=== PATIENT | male | born 1935 | race Caucasian/White ===

== ENCOUNTER 2016-12-18 10:36 | Inpatient (IN) | payer OTHER ==
[~2016-12-18] VITALS: Ht 182.8 cm; Wt 77.1 kg
--- NOTE | ~2016-12-18 | DS ---
[place], [place] DISCHARGE SUMMARY [id number] UN[facility] #: [id number] ROOM: 311 DOCTOR: Patric KIMBLE,KAREN BIRTHDATE: [birth year] DOS: 12/21/2016 ADDENDUM Please refer to the history of present illness, past psychiatric history, past medical history, social history, substance abuse history, admission mental status examination and admission diagnosis from the psychiatric H and P. HOSPITAL COURSE: The patient got admitted for stabilization. We continued his medication. He was pleasant and cooperative during his stay. He was seen by the treatment team regularly. He was also seen by the medical team during his stay. The patient was not a threat to himself or anyone else. The treatment team felt that the patient got maximum benefit out of this acute hospitalization and can be discharged to home on 12/21/2016. Prior to the discharge, the treatment team communicated with the patient's family. They agreed with the discharge plan and did not express any safety concern for the patient or anyone else. MENTAL STATUS EXAMINATION: The patient was pleasant, cooperative, described his mood as "okay." Affect, mood congruent. Thought process goal directed. No flight of ideas or loosening of association. He denied auditory or visual hallucination. No delusion or paranoia noted. He denied suicidal ideation, intent or plan. He also denied homicidal ideation, intent or plan. ASSESSMENT: Mood disorder, not otherwise specified. PLAN: 1. Continue current medication. 2. The patient was advised to go for followup appointment. KAREN KIMBLE MD CM:KUNAL [id number] Patric KIMBLE 12/22/16 0610 interface
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
--- NOTE | ~2016-12-18 | PR ---
[place], [place] PROGRESS NOTE NAME: BAYRON SIERRA UNIT #: [id number] ROOM: 311 DOCTOR: Patric KIMBLE MAHBOOB BIRTHDATE: [birth year] DOS: 12/20/2016 PSYCHIATRIC PROGRESS NOTE SUBJECTIVE: The patient seen and spoke with the staff. Per staff, the patient is doing well. No behavior problems or issues. Medication compliant. No agitated or threatening behavior. As per the clinical social work aide, she spoke with the family. Family feels that the patient is doing well and wanted to take him back home. Reportedly, they did not express any safety concern for the patient including his . They denied having any gun at home also. The patient was pleasant, cooperative, using a wheelchair. He reports doing well. He denied depressed mood or hopelessness. Denied any other neurovegetative signs and symptoms of depression. He denied any symptoms of psychosis, katey or hypomania. He is compliant with his medication. Denied any side effect. He vehemently denied any thoughts of harming his and he said that he is not sure why he acted the way he acted. MENTAL STATUS EXAMINATION: Pleasant, cooperative, describes his mood as "good." Affect, mood congruent. Thought process, he is with some confabulation. Denied auditory or visual hallucination. No delusion or paranoia noted. Denied suicidal ideation, intent or plan. Vehemently denied homicidal ideation, intent or plan. ASSESSMENT: 1. Mood disorder, not otherwise specified, 2. Cognitive disorder, not otherwise specified. PLAN: 1. Continue current medication. 2. Continue redirection. 3. Biggs milieu. 4. Possible discharge to home tomorrow. [place], [place] PROGRESS NOTE NAME: BAYRON SIERRA [facility] UNIT #: [id number] ROOM: 311 DOCTOR: Patric KIMBLE MAHBOOB BIRTHDATE: [birth year] KAREN KIMBLE MD CM:ROE [phone] Patric KIMBLE 12/20/163 interface
--- NOTE | ~2016-12-18 | PR ---
[place], [place] PROGRESS NOTE [id number] UN[facility] #: [id number] ROOM: 311 DOCTOR: Patric KIMBLE,KAREN BIRTHDATE: [birth year] DOS: 12/19/2016 SUBJECTIVE: Patient seen and spoke with the staff. Per staff, patient slept well, took his medication. No behavioral problems or issues. No agitative or threatening behavior. Patient was pleasant, cooperative. He was in the day area. He reports doing well, denied any side effect from the medication. He did not express any problems or concerns. MENTAL STATUS EXAMINATION: Patient was pleasant and cooperative. Described his mood as "okay." Affect, mood congruent. Thought processes with some confabulation. He denied auditory or visual hallucination. No delusion or paranoia noted. He denied suicidal ideation, intent or plan. He also denied homicidal ideation, intent or plan. PLAN: 1. Continue current medications and care. 2. Continue redirection. 3. Biggs milieu and supportive care. KAREN KIMBLE MD CM:ROE [phone] Patric KIMBLE 12/19/16 4739 interface
[2016-12-18] MEDS ORDERED: METOPROLOL TART50 M1 PO (10:56)
[2016-12-18] MEDS ORDERED: SEROQUEL50 MG PO (10:59)
[2016-12-18] MEDS ORDERED: CARAFATE1 G1 PO (11:01)
[2016-12-18] MEDS ORDERED: PRINIVIL10 MG PO (11:01)
[2016-12-18] MEDS ORDERED: PROTONIX40 MG PO (11:02)
[2016-12-18] MEDS ORDERED: TERAZOSIN HCL2 M1 PO (11:03)
[2016-12-18] MEDS ORDERED: COUMADIN2 MG PO (11:04)
[2016-12-18] MEDS ORDERED: TAMSULOSIN HCL0.4 MG PO (11:04)
[2016-12-18] MEDS ORDERED: COUMADIN4 M2 PO (11:06)
[2016-12-18] MEDS ORDERED: COLACE100 MG PO ×2 (11:30→14:46)
[2016-12-18] MEDS ORDERED: NOVOLOG FL100 UNIT/1 SQ (11:32)
[2016-12-18] MEDS ORDERED: ZOCOR20 MG PO (11:33)
[2016-12-18] MEDS ORDERED: ALDACTONE25 M1 PO (11:34)
[2016-12-18] MEDS ORDERED: LANTUS SOL100 UNIT/1 SQ (11:35)
[2016-12-18] MEDS ORDERED: DEPAKOTE DR500 MG PO (14:40)
[2016-12-18] MEDS ORDERED: EXELON1 EACH T (14:42)
[2016-12-18] MEDS ORDERED: COUMADIN3 M1 PO (14:45)
--- NOTE | 2016-12-18 15:55 | NUR ---
BAYRON SIERRA a 81 year old M admitted via stretcher from the [facility] as a emergency 72 hr. hold admission. Arrived on unit at 1555. ALLERGIES: METFORMIN. Vital signs are: 97.1-67-18 125/81. The client signed the following forms with stated understanding: Authorization For The Release of Medical Information, Consent and Release Forms/Receipt of Rights, and Informed Consent of Medications. Admitted under the services of . A search was conducted and hazardous articles were removed. Client was oriented to the unit.
[2016-12-18 15:59] VITALS: BP 125/81
[2016-12-18 16:37] VITALS: BP 125/81
--- NOTE | 2016-12-18 17:38 | NUR ---
DR.CHIAO MULLINS HOSPITALIST CELL NUMBER 1, MADE AWARE OF NEW CONSULT FOR . ACCUCHECK 225, MADE AWARE PATIENT IS ON A SLIDING SCALE FOR INSULIN. AWAITING NEW ORDERS. ADMISSION ORDERS RECEIVED FROM , WITNESSED BY ANOTHER RN.
[2016-12-18 19:58] VITALS: BP 144/86
--- NOTE | 2016-12-18 20:01 | NUR ---
CALLED UNIT BACK AND AWARE OF NEW CONSULT, STATES WILL BE IN TOMORROW TO ASSESS PATIENT.
--- NOTE | 2016-12-18 21:19 | NUR ---
DR BOWDEN ON UNIT TO SEE PT FOR MEDICAL CONSULT.
--- NOTE | 2016-12-18 21:28 | NUR ---
DR BOWDEN ON UNIT & NOTIFIED OF PTS BEDSIDE GLUCOSE OF 412. DR BOWDEN STATED TO GIVE LEVEMIR INSULIN FIRST & RETAKE BLOOD SUGAR IN 1 HOUR & GIVE COVERAGE BASED ON THAT READING.
--- NOTE | 2016-12-18 22:50 | NUR ---
RECHECKED BLOOD SUGAR ORDERED PER DR BOWDEN. 2 CRITICAL READINGS. REFLUX GLUCOSE ORDERED. PHONED RESIDENT & SPOKE WITH DR BOWDEN & HE STATED TO GIVE COVERAGE MAX PER SLIDING SCALE & REPEAT BEDSIDE GLUCOSE IN 2 HOURS.
--- NOTE | 2016-12-18 23:21 | NUR ---
OCTAVIA FROM LABORTORY CALLED WITH CRITICAL HIGH REFLEX GLUCOSE OF 512.
--- NOTE | 2016-12-18 23:22 | NUR ---
DR. BAH UPDATED WITH CRITICAL HIGH REFLEX GLUCOSE RESULT OF 512. NO NEW ORDERS AT THIS TIME FOR ANY ADDITIONAL INSULIN
--- NOTE | 2016-12-19 00:54 | NUR ---
24 HR chart check completed.
--- NOTE | 2016-12-19 01:08 | NUR ---
BEDSIDE GLUCOSE RECHECKED AT THIS TIME PER DR. CARRANZA ORDER. 344
--- NOTE | 2016-12-19 04:57 | NUR ---
DR BAH NOTIFIED THAT PTS HOME MEDICATIONS HAVE NOT BEEN ORDERED YET & PT IS ON COUMADIN & HAS NO LABS ORDERED.
--- NOTE | 2016-12-19 05:11 | NUR ---
PT HAS BEEN OBSERVED ON Q 15 DE CHECKS & HAS SLEPT QUIETLY THROUGHOUT THE SHIFT PAST 2200.
--- NOTE | 2016-12-19 06:42 | NUR ---
AM BEDSIDE GLUCOSE 120
[2016-12-19 07:21] LABS: BASO # 0.1 10*3/uL (0.0-0.1); BASO % 0.9 % (0.0-1.0); EOS # 0.2 10*3/uL (0.0-0.4); EOS % 3.4 % (1.0-4.0); HEMATOCRIT 37.3 % (42.0-52.0); HEMOGLOBIN 12.4 g/dl (14.0-18.0); LYMPH # 1.4 10*3/uL (1.3-4.4); LYMPH % 20.3 % (27.0-41.0); MEAN CELL VOLUME 96.4 fl (80.0-94.0); MEAN CORPUSCULAR HGB CONC 33.2 g/dl (33.0-37.0); MEAN PLATELET VOLUME 11.6 fl (9.6-12.3); MONO # 0.9 10*3/uL (0.1-1.0); MONO % 12.8 % (3.0-9.0); NEUT # 4.2 10*3/uL (2.3-7.9); NEUT % 61.9 % (47.0-73.0); PLATELET COUNT AUTOMATED 175 10*3/uL (130-400); RED BLOOD COUNT 3.87 10*6/uL (4.50-5.90); RED CELL DISTRI WIDTH 12.8 % (0-14.5); WHITE BLOOD COUNT 6.8 10*3/uL (4.8-10.8)
[2016-12-19 07:40] LABS: ALBUMIN 3.1 gm/dl (3.1-4.5); ALKALINE PHOSPHATASE 102 U/L (45-117); BUN 26 mg/dl (7-24); CHLORIDE 103 mmol/L (98-107); CREATININE 1.21 mg/dL (0.70-1.30); POTASSIUM 3.9 mmol/L (3.5-5.1); SGOT/AST 17 IU/L (3-35); SGPT/ALT 15 U/L (12-78); SODIUM 139 mmol/L (136-145); TOTAL PROTEIN 7.3 gm/dL (6.4-8.2)
[2016-12-19 08:06] VITALS: BP 117/73
[2016-12-19 08:15] LABS: INTERNATIONAL NORM RATIO 1.3 (2.0-3.5)
--- NOTE | 2016-12-19 09:18 | NUR ---
TREATMENT TEAM WAS HELD WITH THE FOLLOWING: DR. KIMBLE (PHONE), RNs, AT, SW. NURSING REPORTED ORIENTED X3 , MED COMPIANT, NO AGGRESSION.
--- NOTE | 2016-12-19 10:40 | NUR ---
Attempted Physical therapy evaluation at 1010 but patient was in group. Will attempt later.
--- NOTE | 2016-12-19 11:09 | NUR ---
[facility] Patient attended group with appropriate participation. Patient oriented to self, time and place at this time. Patient with good affect throughout group.
--- NOTE | 2016-12-19 11:31 | NUR ---
DR. KELLY AND DR. GIBSON HERE TO SEE PT AT THIS TIME.
--- NOTE | 2016-12-19 12:48 | NUR ---
PT IS ALERT AND ORIENTED TO PERSON, PLACE, TIME. ST/LT MEMORY GAPS NOTED AT TIMES. RESPIRATIONS EASY ON ROOM AIR. MOOD IS STABLE, AFFECT IS APPROPRIATE. SPEECH IS WNL AND COHERENT, ABLE TO MAKE NEEDS KNOWN WITHOUT DIFFICULTY. PT DENIES SI/HI. PT DENIES HALLUCINATIONS, NO RESPONSE TO INTERNAL STIMULI NOTED. NO PARANOIA/DELUSIONS NOTED. PT IS CALM AND COOPERATIVE. MEDICATION COMPLIANT WITHOUT DIFFICULTY. PT UTILIZES WHEELCHAIR FOR MOBILITY, REQUIRES ASSIST OF 1 FOR ADLS/TOLIETING AND TRANSFERS. ABLE TO FEED SELF WITHOUT DIFFICULTY, DISPLAYS GOOD APPETITE WITH ADEQUATE FLUID INTAKE. PT'S TX PLAN TARGETS: (1) COGNITIVIE IMPAIREMENT R/T DX OF DEMENTIA AEB CONFUSION AND 'SUNDOWNING' BEHAVIORS AND (2) FALL RISK R/T HX OF FALLS AT HOME AEB UNSTEADY GAIT AND RECENT MEDICATION CHANGES. STAFF WILL REORIENT PT TO PERSON, PLACE, TIME AND SITUATION NEEDED THROUGHOUT THE DAY, ENCOURAGE PT TO ATTEND AND PARTICIPATE IN GROUPS AND ACTIVITIES, ENCOURAGE MEDICATION COMPLIANCE, PROVIDE MEDICATION EDUCATION AND MONITOR FOR SIDE EFFECTS AND MAINTAIN HIGH FALL RISK PRECAUTIONS PER POLICY. Q15 MIN SAFETY CHECKS MAINTAINED PER ORDERS, REFER TO [facility] FLOWSHEET FOR SPECIFIC MONITORING.
--- NOTE | 2016-12-19 13:16 | NUR ---
LÁZARO BARRY AT [facility] ALREADY OBTAINED AUTH. AUTH 5 DAYS. LAST COVERED DAY 12/22 WITH NEXT REVIEW 12/22.
--- NOTE | 2016-12-19 13:21 | NUR ---
HYACINTH SPOKE WITH DEDRICK Perry CM. PT APPROVED FOR 5 DAYS. LCD 12-22-16.
--- NOTE | 2016-12-19 14:11 | NUR ---
JUVE spoke with Nighat Hurst from [facility] in regards to pt. home health needs and Nighat states that pt. case closed due to [employer] insurance benefits "running out". Nighat states that pt. will need to look for other Home Health options.
--- NOTE | 2016-12-19 15:32 | NUR ---
Self Esteem Story/Coping Skills Jeopardy Patient did attend group as well as participated this afternoon. Patient was appropriate throughout group,showing no signs of aggression,confusion or behavior issues.
--- NOTE | 2016-12-19 16:38 | NUR ---
Physical therapy evaluation completed. Patient sitting in wheelchair, covered with a blanket up this PT's arrival. Patient was alert and oriented to person and . Patient not oriented to place or time. Patient able to follow directions. Patient walking in hallway with one HR steadily then with front wheeled walker x 40ft with SBA; steady but required SBA for safety and VC for walker placement. Patient should not be up alone. Patient perfromed wheelchair transfers with mulitple attempts to stand, steady upon standing. Bed transfers with SBA for safety as pt "plops"/poorly controlled descent during stand to sit transfers. Patient has good B LE strength and B UE and LE AROM is WFL although patient has observe stiffness in general with all motions. Patient was pleasant and participative. At the end of this eval, patient was sitting in wheelchair with chair alarm attached to his shirt and in the activity room for another group session. Patient denied pain and complaints during and after this session. Continue PT for safety with transfers, increasing gait distance and safety with all functional mobility. Practice at least 2 stairs as patient reports he has 2 to enter his home. Low complexity PT eval and Gait training performed this day. Thank you for this referral, Corina Mckeon, PT
--- NOTE | 2016-12-19 18:30 | NUR ---
SHIFT CHART CHECK COMPLETED.
[2016-12-19 20:00] VITALS: BP 134/83
--- NOTE | 2016-12-19 21:00 | NUR ---
HS BEDSIDE GLUCOSE 245.
--- NOTE | 2016-12-19 22:06 | NUR ---
24 HR chart check completed.
--- NOTE | 2016-12-20 06:36 | NUR ---
PT HAS BEEN OBSERVED ON Q 15 MIN CHECKS & HAS SLEPT QUIETLY THROUGHOUT THE SHIFT PAST 2029 WITH 1 BRIEF AWAKENING & RETURNED TO SLEEP.
--- NOTE | 2016-12-20 07:02 | NUR ---
AM BEDSIDE GLUCOSE 94
[2016-12-20 07:57] VITALS: BP 111/64
--- NOTE | 2016-12-20 10:49 | NUR ---
PHYSICAL THERAPY Duc seen this AM 1:1 for his physical therapy gait and did very well but should not be up ambulating alone, Pt was alert and oriented. Wheeled Duc out into the trimble. Transfer sit/stand, standing balance MIN A X 1. Followed by gait 180' X 2, with wheeled walker, one sitting rest and verbal cues for gait, walker, turn safety and stop/start gait with CGA X 1, no LOB this visit. Pt wheeled back into the day room, body alarm on. ANIRUDH GEIGER BUCKLE ATTACHING MACHINE OPERATOR.
--- NOTE | 2016-12-20 11:04 | NUR ---
Reminiscing Patient did attend group as well as participated. Patient showed no signs of confussion,problem behaviors or aggression throughout group
--- NOTE | 2016-12-20 15:39 | NUR ---
Identifying My Strengths Patient did attend group as well as participated. Patient showed no confusion,aggression,or problem behaviors throughout group
--- NOTE | 2016-12-20 16:31 | NUR ---
Duc is compliant with presribed medications. Mood is depressed, however, he denies any feelings of depression when questioned. He is alert and oriented to person, place and time. No aggression has been noted throughout the day. Energy level is low. Appetite is good. Some hesitancy in responses are noted @ times. Voicing some c/o dryness of eyes. Cell #1 was contacted, Dr. Person, and Dr. Galdamez answered and was informed of Duc' complaints with orders received. Refer to [facility] flowsheet for specific monitoring.
--- NOTE | 2016-12-20 16:32 | NUR ---
SW GAVE FAMILY COY OF DPOA FOR THEM TO REIEW WITH PT UPON DISCHARGE.
[2016-12-20 19:17] VITALS: BP 110/66
--- NOTE | 2016-12-21 02:43 | NUR ---
PT A&O X3. MEMORY GAPS NOTED. MEDICATION COMPLIANT WITHOUT DIFFICULTY. RESPIRATIONS EASY AND NON LABORED. ASSISTED FOR TRANSFERS AND TOILETING. PTS TX PLAN TARGETS (1) COGNITIVE IMAPIRMENT R/T DX OF DEMENTIA AEB CONFUSION AND SUNDOWNING BEHAVIORS AND (2) FALL RISK R/T HX OF FALLS AT HOME AEB UNSTEADY GAIT AND RECENT MEDICATION CHANGES. STAFF WILL REORIENT PT WHEN NEEDED, ENCOURAGE PT TO ATTEND AND PARTICIPATE IN GROUPS AND ACTIVITIES, ENCOURAGE MEDICATION COMPLIANCE, PROVIDE MEDICATION EDUCATION AND MONITOR FOR SIDE EFFECTS AND MAINTAIN HIGH FALL RISK PRECAUTIONSPER POLICY. Q15 MINUTE SAFETY CHECKS MAINTAINED. SEE [facility] FLOWSHEET FOR SPECIFIC MONITORING.
--- NOTE | 2016-12-21 02:55 | NUR ---
24 HR chart check completed.
--- NOTE | 2016-12-21 06:57 | NUR ---
PT SLEPT >8 HOURS Q 15 MIN CHECKS FOR SAFETY AND FALL PRECAUTIONS.
--- NOTE | 2016-12-21 07:05 | NUR ---
PT BLOOD SUGAR CHECK THIS AM HAD A RESULT OF 58. ORANGE JUICE WITH SUAGR GIVEN TO PT. WILL RECHECK BLOOD SUGAR AGAIN.
[2016-12-21 08:37] VITALS: BP 110/64
--- NOTE | 2016-12-21 09:22 | NUR ---
PHYSICAL THERAPY Patient was sitting up in w/c following breakfast and seen 1:1 for therapy, voicing no new c/o's. Patient transfers CGA x 1 and ambulates with use of wh walker, 150'x 2, CGA, demonstrating decreased upright posture with shuffling gait pattern. Patient improved stride during second trial following v/c and was able to complete seated B LE therex, all planes, x 20 reps each to increase LE strength. Patient required both verbal and tactile cues to complete all ex and will continue per POC as tolerated to improve functional mobility. Patient remained seated in w/c at breakfast room table, with body alarm and staff Supervision. Simone Burgos, LAMP STACK DEVELOPER
--- NOTE | 2016-12-21 09:28 | NUR ---
TREATMETN TEAM WAS HELD WITH THE FOLLOWING: DR. KIMBLE (PHONE), RNs, AT, SW. PT TO BE DISCHARGED TODAY.
--- NOTE | 2016-12-21 10:47 | NUR ---
HYACINTH spoke with with Step daughter Melissa. Medical DrJennifer Altamirano is not in office today. melissa will call Sunday to set up appointment for next week. Luisa [facility] to [facility]. discharged scheduled for 1:30pm with signing papers at 1pm.
[2016-12-21] MEDS ORDERED: COUMADIN3 M1 PO (11:12)
[2016-12-21 11:17] LABS: INTERNATIONAL NORM RATIO 1.2 (2.0-3.5)
--- NOTE | 2016-12-21 13:09 | NUR ---
Kristi/Yuliet Patient was in attendence for group as well as participated. Patient reported no auditory/visual Hallucinations during group
--- NOTE | 2016-12-21 13:10 | NUR ---
SW AND NURSE REVIEWED DISCHARGE PAPERWORK AND RECEIVED SIGNATIURES. COPIES WERE GIVEN TO FAMILY. PT DISCHARGED HOME WITH [facility] COMING SUNDAY OR SUNDAY. DR. ROGERS NOT IN OFFICE STEP DTR MAKING APPT ON SUNDAY. , APPTOINTMNET MADE AT [facility] 12-28 9:30AM AND 01-09-17 AT 1:30PM.
--- NOTE | 2016-12-21 14:10 | NUR ---
Duc is compliant with medications. Limited in verbalization during 1:1 with staff. Mood is depressed with anxiety level generally low. Hesitancy is noted in responses to staff @ times. No complaints voiced. No overt s/s of any sensory disturbances are noted. Appetite is good for meals. He has attended scheduled unit activities. Orders were received to discharge Duc to home today. He will be followed with home health by [facility] upon his return home. Discharge medications and follow up appointments reviewed with Duc and his family as well by this RN and stock worker. Discussed the importance of compliance with follow up care in regard to Coumadin therapy and the need to have PT and INR rechecked on 12/25/16 per physician. Family states that he will continue with outpatient tx @ [facility] and will also follow up with his PCP, Dr. Ezekiel Altamirano.Refer to disposition for specific post discharge instructions. Duc did leave this unit, on this date, @ approximately 2 pm discharged to home. He is alert and left via wheelchair. He is accompanied by his family and prior to his departure all personal items were returned to him.
--- NOTE | 2016-12-22 07:55 | NUR ---
PHYSICAL THERAPY CO-SIGN I approve of the Phyical Therapy notes written above. THERESA BARRETT PT
--- NOTE | 2016-12-26 16:01 | NUR ---
Marketing Intern note: [facility] and to Dr. Ezekiel Altamirano. Received confirmation from both.
== END 2016-12-21 14:00 | disposition home or self-care (01) | DRG 884 ==
LOC: 3N 10:36
PROVIDERS: Internal Medicine; Internal Medicine Nephrology; Student in an Organized Health Care Education/Training Program; ADMIT Psychiatry & Neurology Psychiatry
DX: F03.91 Unspecified dementia, unspecified severity, with behavioral disturbance (principal); E11.49 Type 2 diabetes mellitus with other diabetic neurological complication; E11.65 Type 2 diabetes mellitus with hyperglycemia; F23 Brief psychotic disorder; F39 Unspecified mood [affective] disorder; K21.9 Gastro-esophageal reflux disease without esophagitis; I10 Essential (primary) hypertension; E78.5 Hyperlipidemia, unspecified; I48.2 Chronic atrial fibrillation; Z86.73 Personal history of transient ischemic attack (TIA), and cerebral infarction without residual deficits; Z98.49 Cataract extraction status, unspecified eye; Z79.4 Long term (current) use of insulin; Z88.8 Allergy status to other drugs, medicaments and biological substances; Z79.899 Other long term (current) drug therapy